=== PATIENT | male | born 1970 | race Caucasian/White ===

== ENCOUNTER 2018-07-04 14:36 | Emergency (ER) | payer MEDICAID ==
[2018-07-04 14:55] VITALS: BP 150/78
--- NOTE | 2018-07-04 17:01 | ER Document Report ---
ED Medical Screen (RME) - General Chief Complaint: Dialysis Catheter Problem Stated Complaint: PROBLEMS WITH PORT Time Seen by Provider: 07/04/18 16:52 TRAVEL OUTSIDE OF THE U.S. IN LAST 30 DAYS: No - HPI Notes: 07/04/18 16:57 (Sebastien not working): Pt had to have 2 blood transfusions 3 weeks ago s/p renal biopsy in [place]. He does continue to urinate several times throughout the day/night. Usually dialyzed t//sun, but last had dialysis this past sunday in [facility]. nurse note: "patient reports he recently moved here on Sunday. states he is a [facility] dialysis patient with last dialyzed on Sunday. states he was accepted to [facility] but is unable to be seen by office until he has emergency medicaid. states they think his perma-cath has been shifted and needs to have catheter checked, states last 2 times seen for dialysis had to run treatment reverse." Denies BRIONES, fever, neck pain, URI, CP, SOB, Abd pain, or rash. I have treated and performed a rapid initial assessment of this patient. A comprehensive ED assessment and evaluation of the patient, analysis of test results and completion of medical decision making process will be conducted by additional ED providers. PHYSICAL EXAMINATION: GENERAL: Well-appearing, well-nourished and in no acute distress. A&Ox4. Answers questions appropriately. LUNGS: Breath sounds clear to auscultation bilaterally and equal. No wheezes rales or rhonchi. HEART: Regular rate and rhythm without murmurs, rubs, gallops. ABDOMEN: Soft, nondistended abdomen. No guarding, no rebound. Normal bowel sounds present. No CVA tenderness bilaterally. grossly non-tender (cannot elicit thorough abd exam w/o table, however). - Related Data Allergies/Adverse Reactions: No Known Allergies Allergy (Verified 07/04/18 14:40) Past Medical History - Social History Chew tobacco use (# tins/day): No Frequency of alcohol use: None Drug Abuse: None - Past Medical History Cardiac Medical History: Reports: Hx Hypertension Renal/ Medical History: Denies: Hx Peritoneal Dialysis Past Surgical History: Reports: Hx Kidney (Renal Surgery) - right sided renal biopsy Physical Exam - Vital signs Vitals: Temp Pulse Resp BP Pulse Ox 97.9 F 74 18 150/78 H 98 07/04/18 14:54 07/04/18 14:54 07/04/18 14:54 07/04/18 14:54 07/04/18 14:54 Course - Vital Signs Vital signs: Temp Pulse Resp BP Pulse Ox 97.9 F 74 18 150/78 H 98 07/04/18 14:54 07/04/18 14:54 07/04/18 14:54 07/04/18 14:54 07/04/18 14:54
--- NOTE | 2018-07-04 17:31 | RADIOLOGY REPORT (SQ) ---
EXAM DESCRIPTION: CHEST 2 VIEWS COMPLETED DATE/TIME: 07/04/2018 5:21 pm REASON FOR STUDY: port eval COMPARISON: None. EXAM PARAMETERS: NUMBER OF VIEWS: two views TECHNIQUE: Digital Frontal and Lateral radiographic views of the chest acquired. RADIATION DOSE: NA LIMITATIONS: none FINDINGS: LUNGS AND PLEURA: No opacities, masses or pneumothorax. No pleural effusion. MEDIASTINUM AND HILAR STRUCTURES: No masses or contour abnormalities. HEART AND VASCULAR STRUCTURES: Heart normal size. No evidence for failure. BONES: No acute findings. HARDWARE: A right subclavian dual-lumen catheter terminates in the region of the cavoatrial junction. OTHER: No other significant finding. IMPRESSION: No evidence of acute cardiopulmonary abnormality. Right subclavian dual lumen catheter without evidence of gross complication. TECHNICAL DOCUMENTATION: JOB ID: [id number] [employer]- All Rights Reserved Reading location - IP/workstation name: [email or web address]
[2018-07-04 17:49] LABS: ABSOLUTE EOSINOPHILS # (AUTO) 0.1 10^3/uL (0.0-0.6); ABSOLUTE LYMPHOCYTES (AUTO) 1.9 10^3/uL (0.5-4.7); ABSOLUTE MONOCYTES (AUTO) 0.5 10^3/uL (0.1-1.4); ABSOLUTE NEUT (AUTO) 5.3 10^3/uL (1.7-8.2); BASOPHILS % (AUTO) 0.6 % (0-2); EOSINOPHILS % (AUTO) 1.6 % (0-6); HEMATOCRIT 27.4 % (37.9-51.0); HEMOGLOBIN 8.8 g/dL (13.5-17.0); LYMPHOCYTES % (AUTO) 24.4 % (13-45); MEAN CORPUSCULAR HEMOGLOBIN 25.4 pg (27.0-33.4); MEAN CORPUSCULAR HGB CONC 32.2 g/dL (32.0-36.0); MEAN CORPUSCULAR VOLUME 79 fl (80-97); MONOCYTES % (AUTO) 6.1 % (3-13); PLATELET COUNT 358 10^3/uL (150-450); RED BLOOD COUNT 3.48 10^6/uL (4.35-5.55); RED CELL DISTRIBUTION WIDTH 17.2 % (11.5-14.0); SEGMENTED NEUTROPHILS % (AUTO) 67.3 % (42-78); TOTAL CELLS COUNTED % (AUTO) 100 %; WHITE BLOOD COUNT 7.9 10^3/uL (4.0-10.5)
[2018-07-04 18:05] LABS: ALANINE AMINOTRANSFERASE 23 U/L (21-72); ALBUMIN 3.5 g/dL (3.5-5.0); ALKALINE PHOSPHATASE 97 U/L (38-126); ANION GAP 14 (5-19); ASPARTATE AMINO TRANSFERASE 28 U/L (17-59); BILIRUBIN,DIRECT 0.3 mg/dL (0.0-0.4); BILIRUBIN,TOTAL 0.4 mg/dL (0.2-1.3); BLOOD UREA NITROGEN 64 mg/dL (7-20); CARBON DIOXIDE 25 mmol/L (22-30); CHLORIDE 103 mmol/L (98-107); GLUCOSE 85 mg/dL (75-110); POTASSIUM 4.1 mmol/L (3.6-5.0); SODIUM 142.2 mmol/L (137-145); TOTAL PROTEIN 7.7 g/dL (6.3-8.2)
[2018-07-04 18:34] LABS: APPEARANCE,URINE SLIGHTLY-CLOUDY; BILIRUBIN,URINE NEGATIVE (NEGATIVE); COLOR,URINE YELLOW; GLUCOSE, URINE 50 mg/dL (NEGATIVE); KETONES,URINE NEGATIVE (NEGATIVE); LEUKOCYTE ESTERASE,URINE NEGATIVE (NEGATIVE); NITRITE,URINE NEGATIVE (NEGATIVE); PROTEIN,URINE >=500 mg/dL (NEGATIVE); URINE SPECIFIC GRAVITY 1.015; UROBILINOGEN,URINE NEGATIVE mg/dL (<2.0)
[2018-07-04] MEDS ORDERED: HEPARIN SOD (PORCINE) 1,000 UNIT/ML 1 ML VIAL IV STA ×2 (18:36→18:37)
[2018-07-04] MEDS ORDERED: ALTEPLASE INJ 2 MG VIAL (CATH CLEARANCE) IV ONE (18:36)
--- NOTE | 2018-07-04 18:36 | ER Document Report ---
ED General - General Chief Complaint: Dialysis Catheter Problem Stated Complaint: PROBLEMS WITH PORT Time Seen by Provider: 07/04/18 16:52 Primary Care Provider: MOSHE TUCKER MD [ACTIVE STAFF] - Follow up tomorrow Gian MENDOZA MD [ACTIVE STAFF] - Follow up tomorrow Notes: Patient is a 48-year-old male with history of end-stage renal disease on dialysis that presents to the emergency department for chief complaint of catheter malfunction. Patient has a permacath, that he was worried may be malfunctioning, he last had dialysis on Sunday of this week, and they had to switch the ports because it was running slower and they could not draw from it, they did infuse heparin after that session but advised having it checked out. He was worried because 10 days ago he was playing baseball with his son, and swing the bat, and felt a pulling sensation near the catheter site and was concerned that may be it had been affected by this leading to the cause of the dialysis sessions not to be useful. He states has been urinating well, and not had any issues there, he is been keeping a strict renal diet as well. He had his permacath placed about 8 weeks ago. He denies having any pain at this time. No other complaints. He recently moved here from [place], is getting set up with dialysis tomorrow. Past Medical History: End-stage renal disease on dialysis, hypertension Past Surgical History: Permacath placement Social History: Denies tobacco, alcohol or drug use. Family History: Reviewed and noncontributory for presenting illness Allergies: Reviewed, see documented allergy list. REVIEW OF SYSTEMS: Other than noted above, the 12 point review of systems was reviewed with the patient and were negative, all pertinent findings are included in the HPI. PHYSICAL EXAMINATION: Vital signs reviewed, nursing noted reviewed. GENERAL: Well-appearing, well-nourished and in no acute distress. HEAD: Atraumatic, normocephalic. EYES: Eyes appear normal, extraocular movements intact, sclera anicteric, conjunctiva are normal. ENT: nares patent, oropharynx clear without exudates. Moist mucous membranes. NECK: Normal range of motion, supple without lymphadenopathy LUNGS: Breath sounds clear to auscultation bilaterally and equal. No wheezes rales or rhonchi. Permacath noted in the right chest wall. Site does not appear to be infected, appears well sutured, and did not appear to be displaced. HEART: Regular rate and rhythm without murmurs ABDOMEN: Soft, nontender, normoactive bowel sounds. No rebound, guarding, or rigidity. No masses appreciated. EXTREMITIES: Nontender, good range of motion, no pitting or edema. NEUROLOGICAL: No focal neurological deficits. Moves all extremities spontaneously Motor and sensory grossly intact on exam. PSYCH: Normal mood, normal affect. SKIN: Warm, Dry, normal turgor, no rashes or lesions noted on exposed skin TRAVEL OUTSIDE OF THE U.S. IN LAST 30 DAYS: No - Related Data Allergies/Adverse Reactions: No Known Allergies Allergy (Verified 07/04/18 14:40) Past Medical History - Social History Smoking Status: Never Smoker Chew tobacco use (# tins/day): No Frequency of alcohol use: None Drug Abuse: None Family History: Reviewed & Not Pertinent Patient has suicidal ideation: No Patient has homicidal ideation: No - Past Medical History Cardiac Medical History: Reports: Hx Hypertension Renal/ Medical History: Denies: Hx Peritoneal Dialysis Past Surgical History: Reports: Hx Kidney (Renal Surgery) - right sided renal biopsy Physical Exam - Vital signs Vitals: Temp Pulse Resp BP Pulse Ox 97.9 F 74 18 150/78 H 98 07/04/18 14:54 07/04/18 14:54 07/04/18 14:54 07/04/18 14:54 07/04/18 14:54 Course - Re-evaluation Re-evalutation: Patient seen and examined vital signs reviewed. Laboratory data and/or imaging were ordered as appropriate for the patient's presenting symptoms and complaint, with consideration of any critical or life threatening conditions that may be associated with their obtained history and exam as noted above. Results were reviewed when available and demonstrated normal electrolytes, mild anemia, hemoglobin 8.8, expected in a patient with end-stage renal disease on dialysis, creatinine and BUN, consistent with his current state of renal disease. Otherwise unremarkable blood work. Chest x-ray performed prior to flushing and inspecting his catheter, demonstrated dual-lumen catheter, in proper position. Patient's catheter was inspected, using saline flushes, I was able to draw and flush without any issues in both the arterial and venous ports, from the venous side, was able to extract a thin and small clot, this was removed, prior to flushing with fresh saline. Then both catheter ports were flushed with the appropriate amount of heparin, to be instilled. The patient was re-evaluated and was stable, tolerating well, new sterile dressing was applied to the patient's catheter site. Evaluation was most consistent with dialysis catheter malfunction. Results were discussed with the patient at this point, after careful consideration I feel that that patient can be discharged from the emergency department, the patient was educated treatments and reasons to return to the emergency department based on their presumed diagnosis as noted above, they were advised to followup with a primary care physician in 2-3 days. Patient was agreeable to plan of care. *Note is created using voice recognition software and may contain spelling, syntax or grammatical errors. Laboratory 07/04/18 07/04/18 07/04/18 17:02 17:24 17:24 WBC 7.9 RBC 3.48 L Hgb 8.8 L Hct 27.4 L MCV 79 L MCH 25.4 L MCHC 32.2 RDW 17.2 H Plt Count 358 Seg Neutrophils % 67.3 Lymphocytes % 24.4 Monocytes % 6.1 Eosinophils % 1.6 Basophils % 0.6 Absolute Neutrophils 5.3 Absolute Lymphocytes 1.9 Absolute Monocytes 0.5 Absolute Eosinophils 0.1 Absolute Basophils 0.0 Sodium 142.2 Potassium 4.1 Chloride 103 Carbon Dioxide 25 Anion Gap 14 BUN 64 H Creatinine 7.09 H Est GFR ( Amer) 10 L Est GFR (Non-Af Amer) 8 L Glucose 85 Calcium 9.0 Total Bilirubin 0.4 Direct Bilirubin 0.3 Neonat Total Bilirubin Not Reportable Neonat Direct Bilirubin Not Reportable Neonat Indirect Bili Not Reportable AST 28 ALT 23 Alkaline Phosphatase 97 Total Protein 7.7 Albumin 3.5 Urine Color YELLOW Urine Appearance SLIGHTLY-CLOUDY Urine pH 6.0 Ur Specific [place] 1.015 Urine Protein >=500 H Urine Glucose (UA) 50 H Urine Ketones NEGATIVE Urine Blood MODERATE H Urine Nitrite NEGATIVE Urine Bilirubin NEGATIVE Urine Urobilinogen NEGATIVE Ur Leukocyte Esterase NEGATIVE Urine WBC (Auto) 11 Urine RBC (Auto) 80 Urine Mucus (Auto) RARE Urine Ascorbic Acid NEGATIVE Chest X-Ray 07/04/18 17:01 IMPRESSION: No evidence of acute cardiopulmonary abnormality. Right subclavian dual lumen catheter without evidence of gross complication. - Vital Signs Vital signs: Temp Pulse Resp BP Pulse Ox 97.9 F 74 18 150/78 H 98 07/04/18 14:54 07/04/18 14:54 07/04/18 14:54 07/04/18 14:54 07/04/18 14:54 - Laboratory Result Diagrams: 07/04/18 17:24 07/04/18 17:24 Laboratory results interpreted by me: 07/04/18 07/04/18 07/04/18 17:02 17:24 17:24 RBC 3.48 L Hgb 8.8 L Hct 27.4 L MCV 79 L MCH 25.4 L RDW 17.2 H BUN 64 H Creatinine 7.09 H Est GFR ( Amer) 10 L Est GFR (Non-Af Amer) 8 L Urine Protein >=500 H Urine Glucose (UA) 50 H Urine Blood MODERATE H Discharge - Discharge Clinical Impression: Complication, dialysis catheter clot or failure Condition: Stable Disposition: HOME, SELF-CARE Additional Instructions: Please follow-up with [facility] dialysis center tomorrow, to set up dialysis, and to schedule with a corporate associate. I did list below to the corporate associate in the area that we often work with. If you have any further concerns, do not hesitate to return to the emergency department. Referrals: MOSHE TUCKER MD [ACTIVE STAFF] - Follow up tomorrow Gian MENDOZA MD [ACTIVE STAFF] - Follow up tomorrow
== END 2018-07-04 20:07 | disposition home or self-care (01) ==
LOC: ER 14:36
DX: T82.868A Thrombosis due to vascular prosthetic devices, implants and grafts, initial encounter (principal); Y82.8 Other medical devices associated with adverse incidents; Y84.1 Kidney dialysis as the cause of abnormal reaction of the patient, or of later complication, without mention of misadventure at the time of the procedure; I12.0 Hypertensive chronic kidney disease with stage 5 chronic kidney disease or end stage renal disease; D63.1 Anemia in chronic kidney disease; N18.6 End stage renal disease; Z99.2 Dependence on renal dialysis
CPT/HCPCS: 99283; 36415; 85025; 80053; 81001; 71046; J1644; J2997

== ENCOUNTER 2018-07-07 12:58 | Emergency (ER) | payer OTHER, MEDICAID ==
--- NOTE | 2018-07-07 13:41 | ER Document Report ---
ED Medical Screen (RME) - General Chief Complaint: Dialysis Catheter Problem Stated Complaint: DIALYSIS Time Seen by Provider: 07/07/18 13:39 Mode of Arrival: Ambulatory Information source: Patient Notes: 48-year-old male presented to ED for need of dialysis. He states he last had his dialysis on Sunday in [place]. He states he transferred here and was supposed to get his dialysis at [facility] but they refused him because he does not have [place] Medicaid. He states about 3 weeks ago he had a renal biopsy that went bad and he ended up with a injury to his liver and kidney. States he ended up having to get a lot of blood and on some medicines. He states he is also has a history of fractured arms and ribs. He states mainly he is here because he has not had dialysis since Sunday. Patient is alert oriented respirations regular and unlabored speaking in full sentences walks with a even steady gait. I have greeted and performed a rapid initial assessment of this patient. A comprehensive ED assessment and evaluation of the patient, analysis of test results and completion of medical decision making process will be conducted by an additional ED providers. TRAVEL OUTSIDE OF THE U.S. IN LAST 30 DAYS: No - Related Data Allergies/Adverse Reactions: No Known Allergies Allergy (Verified 07/07/18 13:01) Past Medical History - Social History Drug Abuse: None - Past Medical History Cardiac Medical History: Reports: Hx Hypertension Renal/ Medical History: Denies: Hx Peritoneal Dialysis Past Surgical History: Reports: Hx Kidney (Renal Surgery) - right sided renal biopsy Physical Exam - Vital signs Vitals: Temp Pulse Resp BP Pulse Ox 98.7 F 86 18 164/90 H 86 L 07/07/18 13:38 07/07/18 13:38 07/07/18 13:38 07/07/18 13:38 07/07/18 13:38 Course - Vital Signs Vital signs: Temp Pulse Resp BP Pulse Ox 98.7 F 86 18 164/90 H 86 L 07/07/18 13:38 07/07/18 13:38 07/07/18 13:38 07/07/18 13:38 07/07/18 13:38
[2018-07-07 14:34] LABS: ABSOLUTE EOSINOPHILS # (AUTO) 0.1 10^3/uL (0.0-0.6); ABSOLUTE MONOCYTES (AUTO) 0.4 10^3/uL (0.1-1.4); ABSOLUTE NEUT (AUTO) 4.2 10^3/uL (1.7-8.2); BASOPHILS % (AUTO) 0.7 % (0-2); EOSINOPHILS % (AUTO) 1.6 % (0-6); HEMATOCRIT 26.6 % (37.9-51.0); HEMOGLOBIN 8.9 g/dL (13.5-17.0); MEAN CORPUSCULAR HEMOGLOBIN 25.9 pg (27.0-33.4); MEAN CORPUSCULAR HGB CONC 33.3 g/dL (32.0-36.0); MEAN CORPUSCULAR VOLUME 78 fl (80-97); MONOCYTES % (AUTO) 7.2 % (3-13); PLATELET COUNT 292 10^3/uL (150-450); RED BLOOD COUNT 3.43 10^6/uL (4.35-5.55); RED CELL DISTRIBUTION WIDTH 17.2 % (11.5-14.0); SEGMENTED NEUTROPHILS % (AUTO) 73.5 % (42-78); TOTAL CELLS COUNTED % (AUTO) 100 %; WHITE BLOOD COUNT 5.7 10^3/uL (4.0-10.5)
[2018-07-07 14:44] LABS: AMORPHOUS SEDIMENT,URINE TRACE /HPF; APPEARANCE,URINE CLOUDY; BILIRUBIN,URINE NEGATIVE (NEGATIVE); COLOR,URINE YELLOW; GLUCOSE, URINE 50 mg/dL (NEGATIVE); KETONES,URINE NEGATIVE (NEGATIVE); LEUKOCYTE ESTERASE,URINE NEGATIVE (NEGATIVE); NITRITE,URINE NEGATIVE (NEGATIVE); PROTEIN,URINE >=500 mg/dL (NEGATIVE); URINE SPECIFIC GRAVITY 1.018; UROBILINOGEN,URINE NEGATIVE mg/dL (<2.0)
[2018-07-07 14:55] LABS: ALANINE AMINOTRANSFERASE 28 U/L (21-72); ALBUMIN 3.3 g/dL (3.5-5.0); ALKALINE PHOSPHATASE 100 U/L (38-126); ANION GAP 15 (5-19); ASPARTATE AMINO TRANSFERASE 30 U/L (17-59); BILIRUBIN,DIRECT 0.4 mg/dL (0.0-0.4); BILIRUBIN,TOTAL 0.4 mg/dL (0.2-1.3); BLOOD UREA NITROGEN 70 mg/dL (7-20); CALCIUM 8.8 mg/dL (8.4-10.2); CARBON DIOXIDE 23 mmol/L (22-30); CHLORIDE 102 mmol/L (98-107); GLUCOSE 116 mg/dL (75-110); LIPASE 147.8 U/L (23-300); POTASSIUM 4.3 mmol/L (3.6-5.0); TOTAL PROTEIN 7.4 g/dL (6.3-8.2)
[2018-07-07] MEDS ORDERED: HEPARIN SOD (PORCINE) 1,000 UNIT/ML 1 ML VIAL IV STA ×2 (16:58→16:59)
--- NOTE | 2018-07-07 16:58 | ER Document Report ---
ED General - General Chief Complaint: Dialysis Catheter Problem Stated Complaint: DIALYSIS Time Seen by Provider: 07/07/18 13:39 Mode of Arrival: Ambulatory Notes: Patient is a 48-year-old male with end-stage renal disease on dialysis that presents to the emergency department for chief complaint of possibly needing di alysis. Patient states that he was not able to get into see [facility] last week, so he was worried that he may need dialysis emergently so he came urgency department. He was a started on dialysis about 8 weeks ago, I did see this patient in the emergency department last week, as he thought that his permacath was not functioning properly but at that time it was. He is worried as well that it may clot off and he does not want that to happen either. He denies having any shortness of breath or difficulty breathing, he is complaining of some leg cramps, describes as worse with getting up or walking, but he is been keeping a strict fluid intake diet, only drinking 2 bottles of water a day, and has been keeping a strict low-salt diet as well. He currently rates his pain as a 0 out of 10 at rest, but describes as a 4 out of 10 when he is walking. Past Medical History: End-stage renal disease on dialysis, hypertension Past Surgical History: Permacath placement Social History: Denies current tobacco, alcohol or drug use. Family History: Reviewed and noncontributory for presenting illness Allergies: Reviewed, see documented allergy list. REVIEW OF SYSTEMS: Other than noted above, the 12 point review of systems was reviewed with the patient and were negative, all pertinent findings are included in the HPI. PHYSICAL EXAMINATION: Vital signs reviewed, nursing noted reviewed. GENERAL: Well-appearing, well-nourished and in no acute distress. HEAD: Atraumatic, normocephalic. EYES: Eyes appear normal, extraocular movements intact, sclera anicteric, conjunctiva are normal. ENT: nares patent, oropharynx clear without exudates. Moist mucous membranes. NECK: Normal range of motion, supple without lymphadenopathy LUNGS: Breath sounds clear to auscultation bilaterally and equal. No wheezes rales or rhonchi. Tunneled permacatheter noted in the right chest wall. HEART: Regular rate and rhythm without murmurs ABDOMEN: Soft, nontender, normoactive bowel sounds. No rebound, guarding, or rigidity. No masses appreciated. EXTREMITIES: Mild tenderness to palpation to the proximal thighs, no rashes or lesions noted, good range of motion, no pitting or edema. NEUROLOGICAL: No focal neurological deficits. Moves all extremities spontaneously Motor and sensory grossly intact on exam. PSYCH: Normal mood, normal affect. SKIN: Warm, Dry, normal turgor, no rashes or lesions noted on exposed skin TRAVEL OUTSIDE OF THE U.S. IN LAST 30 DAYS: No - Related Data Allergies/Adverse Reactions: No Known Allergies Allergy (Verified 07/07/18 13:01) Past Medical History - General Information source: Patient - Social History Smoking Status: Never Smoker Drug Abuse: None Family History: Reviewed & Not Pertinent Patient has suicidal ideation: No Patient has homicidal ideation: No - Past Medical History Cardiac Medical History: Reports: Hx Hypertension Renal/ Medical History: Denies: Hx Peritoneal Dialysis Past Surgical History: Reports: Hx Kidney (Renal Surgery) - right sided renal biopsy Physical Exam - Vital signs Vitals: Temp Pulse Resp BP Pulse Ox 98.7 F 86 18 164/90 H 86 L 07/07/18 13:38 07/07/18 13:38 07/07/18 13:38 07/07/18 13:38 07/07/18 13:38 Course - Re-evaluation Re-evalutation: Patient seen and examined vital signs reviewed. Laboratory data and/or imaging were ordered as appropriate for the patient's presenting symptoms and complaint, with consideration of any critical or life threatening conditions that may be associated with their obtained history and exam as noted above. Patient was treated with flushing of his catheter, with new heparin, and his catheter was redressed with new Tegaderm sterilely. Results were reviewed when available and demonstrated no signs of acidosis, no severe electrolyte abnormalities, no hyperkalemia, patient did not appear fluid overloaded, and any indication for acute dialysis. The patient was re-evaluated and was stable Evaluation was most consistent with mild dehydration as well as suspect, patient's been urinating, and not drinking all that much, I do advised him strongly to follow-up with the dialysis center, to call the sales planning manager to see if he can get into get set up for routine dialysis. Results were discussed with the patient at this point, after careful consideration I feel that that patient can be discharged from the emergency department, the patient was educated treatments and reasons to return to the emergency department based on their presumed diagnosis as noted above, they were advised to followup with a primary care physician in 2-3 days. Patient was agre eable to plan of care. *Note is created using voice recognition software and may contain spelling, syntax or grammatical errors. Laboratory 07/07/18 07/07/18 07/07/18 14:00 14:00 14:00 WBC 5.7 RBC 3.43 L Hgb 8.9 L Hct 26.6 L MCV 78 L MCH 25.9 L MCHC 33.3 RDW 17.2 H Plt Count 292 Seg Neutrophils % 73.5 Lymphocytes % 17.0 Monocytes % 7.2 Eosinophils % 1.6 Basophils % 0.7 Absolute Neutrophils 4.2 Absolute Lymphocytes 1.0 Absolute Monocytes 0.4 Absolute Eosinophils 0.1 Absolute Basophils 0.0 Sodium 140.0 Potassium 4.3 Chloride 102 Carbon Dioxide 23 Anion Gap 15 BUN 70 H Creatinine 7.93 H Est GFR ( Amer) 9 L Est GFR (Non-Af Amer) 7 L Glucose 116 H Calcium 8.8 Total Bilirubin 0.4 Direct Bilirubin 0.4 Neonat Total Bilirubin Not Reportable Neonat Direct Bilirubin Not Reportable Neonat Indirect Bili Not Reportable AST 30 ALT 28 Alkaline Phosphatase 100 Total Protein 7.4 Albumin 3.3 L Lipase 147.8 Urine Color YELLOW Urine Appearance CLOUDY Urine pH 5.0 Ur Specific [place] 1.018 Urine Protein >=500 H Urine Glucose (UA) 50 H Urine Ketones NEGATIVE Urine Blood MODERATE H Urine Nitrite NEGATIVE Urine Bilirubin NEGATIVE Urine Urobilinogen NEGATIVE Ur Leukocyte Esterase NEGATIVE Urine WBC (Auto) 10 Urine RBC (Auto) 77 Urine Bacteria (Auto) TRACE Squamous Epi Cells Auto 1 Amorphous Sediment Auto TRACE Urine Mucus (Auto) RARE Urine Ascorbic Acid NEGATIVE - Vital Signs Vital signs: Temp Pulse Resp BP Pulse Ox 98.7 F 86 18 164/90 H 86 L 07/07/18 13:38 07/07/18 13:38 07/07/18 13:38 07/07/18 13:38 07/07/18 13:38 - Laboratory Result Diagrams: 07/07/18 14:00 07/07/18 14:00 Laboratory results interpreted by me: 07/07/18 07/07/18 07/07/18 14:00 14:00 14:00 RBC 3.43 L Hgb 8.9 L Hct 26.6 L MCV 78 L MCH 25.9 L RDW 17.2 H BUN 70 H Creatinine 7.93 H Est GFR ( Amer) 9 L Est GFR (Non-Af Amer) 7 L Glucose 116 H Albumin 3.3 L Urine Protein >=500 H Urine Glucose (UA) 50 H Urine Blood MODERATE H Discharge - Discharge Clinical Impression: Leg cramping, ESRD (end stage renal disease) on dialysis Condition: Stable Disposition: HOME, SELF-CARE Instructions: Kidney Failure ([facility]) Additional Instructions: These follow-up with the dialysis center, and with the sales planning manager, call for an appointment. Referrals: LOCAL,NO [Primary Care Provider] - Follow up as needed MOSHE TUCKER MD [ACTIVE STAFF] - Follow up as needed Gian MENDOZA MD [ACTIVE STAFF] - Follow up as needed
[2018-07-07] MEDS ORDERED: HEPARIN SOD (PORCINE) 1,000 UNIT/ML 10 ML VIAL IV ONE (17:36)
[2018-07-07 18:22] VITALS: BP 178/92
== END 2018-07-07 18:22 | disposition home or self-care (01) ==
LOC: ER 12:58
DX: R25.2 Cramp and spasm (principal); I12.0 Hypertensive chronic kidney disease with stage 5 chronic kidney disease or end stage renal disease; N18.6 End stage renal disease; Z99.2 Dependence on renal dialysis
CPT/HCPCS: 99284; 36415; 83690; 85025; 80053; 81001; J1644

== ENCOUNTER 2018-08-21 10:28 | Emergency (ER) | payer OTHER, MEDICAID ==
--- NOTE | 2018-08-21 11:40 | ER Document Report ---
ED Medical Screen (RME) - General Chief Complaint: Weakness Stated Complaint: GENERAL WEAKNESS Time Seen by Provider: 08/21/18 11:23 Primary Care Provider: NEELIMA ZHONG [Primary Care Provider] - Follow up as needed Mode of Arrival: Ambulatory Information source: Patient Notes: Patient is a 40-year-old male presented to the emergency department chief complaint of dizziness and generalized weakness. Patient reports he is a dialysis patient has not had dialysis for approximately 7 to 8 weeks. He also reports that he has discomfort around his dialysis port that is on his right chest wall. He states he moved here from [place] and has not been able to set up insurance yet. Exam: Patient alert, oriented answering all questions and in no acute distress. Heart sounds S1-S2 present with no ectopy noted. Lung sounds clear and equal bilaterally. I have greeted and performed a rapid initial assessment of this patient. A comprehensive ED assessment and evaluation of the patient, analysis of test results and completion of the medical decision making process will be conducted by additional ED providers. Dictation of this chart was performed using voice recognition software; therefore, there may be some unintended grammatical errors. TRAVEL OUTSIDE OF THE U.S. IN LAST 30 DAYS: No - Related Data Allergies/Adverse Reactions: No Known Allergies Allergy (Verified 08/21/18 10:30) Past Medical History - Social History Frequency of alcohol use: None Drug Abuse: None - Past Medical History Cardiac Medical History: Reports: Hx Congestive Heart Failure, Hx Hypertension Renal/ Medical History: Denies: Hx Peritoneal Dialysis Past Surgical History: Reports: Hx Kidney (Renal Surgery) - right sided renal biopsy Physical Exam - Vital signs Vitals: Temp Pulse Resp BP Pulse Ox 98.1 F 86 18 176/83 H 99 08/21/18 10:31 08/21/18 10:31 08/21/18 10:31 08/21/18 10:31 08/21/18 10:31 Course - Vital Signs Vital signs: Temp Pulse Resp BP Pulse Ox 98.1 F 86 18 176/83 H 99 08/21/18 10:31 08/21/18 10:31 08/21/18 10:31 08/21/18 10:31 08/21/18 10:31 Doctor's Discharge - Discharge Referrals: NEELIMA ZHONG [Primary Care Provider] - Follow up as needed
--- NOTE | 2018-08-21 12:12 | RADIOLOGY REPORT (SQ) ---
EXAM DESCRIPTION: CHEST 2 VIEWS COMPLETED DATE/TIME: 08/21/2018 11:53 am REASON FOR STUDY: weakness, missed dialysis COMPARISON: 07/04/2018 EXAM PARAMETERS: NUMBER OF VIEWS: two views TECHNIQUE: Digital Frontal and Lateral radiographic views of the chest acquired. RADIATION DOSE: NA LIMITATIONS: none FINDINGS: LUNGS AND PLEURA: No opacities, masses or pneumothorax. No pleural effusion. MEDIASTINUM AND HILAR STRUCTURES: No masses or contour abnormalities. HEART AND VASCULAR STRUCTURES: Heart normal size. No evidence for failure. BONES: No acute findings. HARDWARE: None in the chest. OTHER: Unchanged position of right-sided central line. IMPRESSION: NO ACUTE RADIOGRAPHIC FINDING IN THE CHEST. TECHNICAL DOCUMENTATION: JOB ID: [id number] [employer]- All Rights Reserved Reading location - IP/workstation name: [email or web address]
[2018-08-21 12:29] LABS: ABSOLUTE BASOPHILS # (AUTO) 0.1 10^3/uL (0.0-0.2); ABSOLUTE EOSINOPHILS # (AUTO) 0.1 10^3/uL (0.0-0.6); ABSOLUTE LYMPHOCYTES (AUTO) 0.9 10^3/uL (0.5-4.7); ABSOLUTE MONOCYTES (AUTO) 0.4 10^3/uL (0.1-1.4); ABSOLUTE NEUT (AUTO) 7.9 10^3/uL (1.7-8.2); BASOPHILS % (AUTO) 0.8 % (0-2); EOSINOPHILS % (AUTO) 0.8 % (0-6); HEMATOCRIT 21.5 % (37.9-51.0); LYMPHOCYTES % (AUTO) 9.4 % (13-45); MEAN CORPUSCULAR HEMOGLOBIN 25.7 pg (27.0-33.4); MEAN CORPUSCULAR VOLUME 76 fl (80-97); MONOCYTES % (AUTO) 4.6 % (3-13); PLATELET COUNT 111 10^3/uL (150-450); RED BLOOD COUNT 2.84 10^6/uL (4.35-5.55); SEGMENTED NEUTROPHILS % (AUTO) 84.4 % (42-78); TOTAL CELLS COUNTED % (AUTO) 100 %; WHITE BLOOD COUNT 9.4 10^3/uL (4.0-10.5)
[2018-08-21 12:32] LABS: HEMOGLOBIN 7.3 g/dL (13.5-17.0)
[2018-08-21 12:58] LABS: ALANINE AMINOTRANSFERASE 23 U/L (21-72); ALBUMIN 3.4 g/dL (3.5-5.0); ALKALINE PHOSPHATASE 118 U/L (38-126); ANION GAP 15 (5-19); ASPARTATE AMINO TRANSFERASE 26 U/L (17-59); BILIRUBIN,DIRECT 0.4 mg/dL (0.0-0.4); BILIRUBIN,TOTAL 0.4 mg/dL (0.2-1.3); BLOOD UREA NITROGEN 102 mg/dL (7-20); CALCIUM 8.2 mg/dL (8.4-10.2); CARBON DIOXIDE 19 mmol/L (22-30); CHLORIDE 103 mmol/L (98-107); GLUCOSE 107 mg/dL (75-110); POTASSIUM 4.6 mmol/L (3.6-5.0); SODIUM 137.1 mmol/L (137-145); TOTAL PROTEIN 7.6 g/dL (6.3-8.2)
[2018-08-21 13:10] LABS: TROPONIN I 0.096 ng/mL
[2018-08-21] MEDS ORDERED: ONDANSETRON HCL INJ/PF 4 MG/2 ML SDV IV ONE (14:11)
--- NOTE | 2018-08-21 16:51 | ER Document Report ---
ED Dizziness/Weakness - General Chief Complaint: Weakness Stated Complaint: GENERAL WEAKNESS Time Seen by Provider: 08/21/18 11:23 Primary Care Provider: [facility] [Provider Group] - Follow up as needed Mode of Arrival: Ambulatory Notes: Patient is a 48-year-old male with a history of stage IV kidney disease on hemodialysis, hypertension, CVA who presents to the emergency department with a chief complaint of generalized weakness. Patient states he started hemodialysis in May 2018 while living in [place]. Patient reports he developed kidney failure due to uncontrolled hypertension. Patient states the last time he had dialysis was 3 weeks ago at [facility] in [place]. Patient reports that at that time he was also anemic with a hemoglobin in the fours in which she did receive a blood transfusion. Patient states that due to insurance issues he has been able to establish care with a shrimp peeling machine operator, primary care or with a [facility] in the area which is why he is seeking care in the emergency department today. Patient reports generalized weakness, nausea, blurred vision in both eyes and seeing stars. Patient states that his blurred vision has been present since his hemoglobin was 4 and he was admitted into the hospital at [facility]. Patient states he started to feel this way when his hemoglobin got too low. Patient states he does feel winded when attempting to ambulate with shortness of breath. TRAVEL OUTSIDE OF THE [place] IN LAST 30 DAYS: No - Related Data Allergies/Adverse Reactions: No Known Allergies Allergy (Verified 08/21/18 10:30) Past Medical History - General Information source: Patient - Social History Smoking Status: Never Smoker Frequency of alcohol use: None Drug Abuse: None Lives with: Family Family History: Reviewed & Not Pertinent Patient has suicidal ideation: No Patient has homicidal ideation: No - Past Medical History Cardiac Medical History: Reports: Hx Congestive Heart Failure, Hx Hypertension Pulmonary Medical History: Reports: None EENT Medical History: Reports: None Neurological Medical History: Reports: None Endocrine Medical History: Reports: None Renal/ Medical History: Reports: Hx End Stage Renal Disease, Hx Hemodialysis. Denies: Hx Peritoneal Dialysis Malignancy Medical History: Reports None GI Medical History: Reports: None Musculoskeletal Medical History: Reports None Skin Medical History: Reports None Psychiatric Medical History: Reports: None Traumatic Medical History: Reports: None Infectious Medical History: Reports: None Past Surgical History: Reports: Hx Kidney (Renal Surgery) - right sided renal biopsy Review of Systems - Review of Systems Constitutional: See HPI EENT: See HPI Cardiovascular: See HPI Respiratory: See HPI Gastrointestinal: No symptoms reported Genitourinary: See HPI Male Genitourinary: No symptoms reported Musculoskeletal: No symptoms reported Skin: No symptoms reported Hematologic/Lymphatic: No symptoms reported Neurological/Psychological: No symptoms reported Physical Exam - Vital signs Vitals: Temp Pulse Resp BP Pulse Ox 98.1 F 86 18 176/83 H 99 08/21/18 10:31 08/21/18 10:31 08/21/18 10:31 08/21/18 10:31 08/21/18 10:31 Interpretation: Hypertensive - Notes Notes: GENERAL: Well-appearing, well-nourished and in no acute distress. HEAD: Atraumatic, normocephalic. EYES: Pupils equal round and reactive to light, extraocular movements intact, sclera anicteric, conjunctiva pale. ENT: Nares patent, oropharynx clear without exudates. Moist mucous membranes. NECK: Normal range of motion, supple without lymphadenopathy or JVD. LUNGS: Breath sounds clear to auscultation bilaterally and equal. No wheezes rales or rhonchi. HEART: Regular rate and rhythm without murmurs, rubs or gallops. Right tunneled PermCath noted to chest wall with a dressing over the site. ABDOMEN: Soft, nontender, normoactive bowel sounds. No guarding, no rebound. No masses appreciated. BACK: No cervical, thoracic, lumbar midline tenderness. No saddle anesthesia, normal distal neurovascular exam. GENITOURINARY: Deferred. EXTREMITIES: Normal range of motion, +1/+2 pitting edema bilateral lower ext remities. No clubbing or cyanosis. NEUROLOGICAL: Cranial nerves II through XII grossly intact. Normal speech, normal gait. PSYCH: Normal mood, normal affect. SKIN: Warm, Dry, normal turgor, no rashes or lesions noted, skin pale. Course - Re-evaluation Re-evalutation: 08/21/18 17:03 I did consult with Dr. Goff regarding patient's blood work and presenting symptoms. She agrees that the patient does not appear to need emergent dialysis. She does agree that the patient needs to be treated for his symptomatic anemia as well as a social work consult due to his inability to establish dialysis care on his own. She reports that next dialysis in hospital would be available in 2 days on Sunday. 08/21/18 17:28 [address] did speak with Dr. Parker, hospitalist, who recommends giving the patient one unit of blood due to the symptomatic anemia, refer the patient to the [facility] and to place a referral to the social media manager. Patient states he has attempted to go to the [facility] on a Sunday afternoon but they were closed. Patient states he has applied for the [place] Medicaid coverage but needs a primary care physician to write a letter stating that his chronic kidney disease is a chronic issue and not an acute issue. Patient is unsure why he is anemic. Patient states that he was told by Aidee that this was due to his kidney function. Patient denies black or tarry stools and denies bright red blood in his stools. Patient does take a iron supplementation daily. 08/21/18 18:00 I did speak with my attending Dr. Velasquez, who recommends obtaining a Hemoccult rectal exam. He states that since we do not have dialysis available and that the patient has symptomatic anemia he will need a blood transfusion with the potential of possible fluid overload. He recommends calling [facility] for possible transfer. 08/21/18 18:55 Patient Hemoccult negative. Patient requesting pain medication for his lower back. 08/21/18 19:05 I did speak with Dr. Goff once again regarding the patient case. She states that after giving the 1 unit of blood she recommends giving him 40 mg of Lasix IV. She does state that patient needs a close follow-up and a social work referral. I did discuss this with the patient as well as Dr. Velasquez who is in agreement of plan. Patient states that 3 weeks ago when he was at [facility] he tolerated the infusion well. Patient states overall he has been in the eating a diet low in salt and limiting his fluids as he knows he eventually needs dialysis and is trying to extend the time until his insurance is approved. manager of planning consult placed. Informed patient that they will be in contact with him tomorrow. Patient verbalizes understanding. 08/21/18 20:00 Patient's discharge instructions typed up. I did discuss with the patient that his blood infusion would take a while as we do not want to infuse it quickly and fluid overload him. Patient will receive a dose of IV Lasix prior to discharge. Patient verbalizes understanding. I will give patient's dose of blood pressure medications as he is due for them tonight. Patient in no acute distress. Family is at bedside. - Vital Signs Vital signs: Temp Pulse Resp BP Pulse Ox 98.9 F 88 17 148/86 H 96 08/22/18 01:30 08/22/18 01:30 08/22/18 02:01 08/22/18 02:00 08/22/18 02:01 - Laboratory Result Diagrams: 08/21/18 12:06 08/21/18 12:06 Laboratory results interpreted by me: 08/21/18 08/21/18 08/21/18 12:06 12:06 12:06 RBC 2.84 L Hgb 7.3 L Hct 21.5 L MCV 76 L MCH 25.7 L RDW 18.0 H Plt Count 111 L Seg Neutrophils % 84.4 H Lymphocytes % 9.4 L Carbon Dioxide 19 L BUN 102 H Creatinine 13.96 H Est GFR ( Amer) 5 L Est GFR (Non-Af Amer) 4 L Calcium 8.2 L NT-Pro-B Natriuret Pep Albumin 3.4 L Urine Protein Urine Glucose (UA) Urine Blood Crossmatch See Detail 08/21/18 08/21/18 12:06 18:10 RBC Hgb Hct MCV MCH RDW Plt Count Seg Neutrophils % Lymphocytes % Carbon Dioxide BUN Creatinine Est GFR ( Amer) Est GFR (Non-Af Amer) Calcium NT-Pro-B Natriuret Pep 9760 H Albumin Urine Protein >=500 H Urine Glucose (UA) 150 H Urine Blood MODERATE H Crossmatch Discharge - Discharge Clinical Impression: Symptomatic anemia, End stage renal disease, Dizziness Condition: Stable Disposition: HOME, SELF-CARE Additional Instructions: Today you were seen in the emergency department for generalized weakness and blurred vision. It was found that your hemoglobin is 7.2. This is a change from your previous visit back in July as it is lower. Ultimately you will need dialysis once your insurance is established in this state. I did speak with Dr. Goff, who is a shrimp peeling machine operator in the area. She agrees with my plan to give 1 unit of packed red blood cells. I have also placed a social work consult in your chart, they will be in contact with you tomorrow on your cell phone. Social work may be able to help expedite the insurance issues that you are having and help to get an appointment with the [facility] quicker. Please return to the emergency department for any worsening signs or symptoms to include passing out, worsening dizziness, worsening change in vision, chest pain, shortness of breath or any other concerning signs or symptoms. Referrals: [facility] [Provider Group] - Follow up as needed
[2018-08-21 18:31] LABS: APPEARANCE,URINE SLIGHTLY-CLOUDY; BILIRUBIN,URINE NEGATIVE (NEGATIVE); COLOR,URINE YELLOW; GLUCOSE, URINE 150 mg/dL (NEGATIVE); KETONES,URINE NEGATIVE (NEGATIVE); LEUKOCYTE ESTERASE,URINE NEGATIVE (NEGATIVE); NITRITE,URINE NEGATIVE (NEGATIVE); PROTEIN,URINE >=500 mg/dL (NEGATIVE); URINE SPECIFIC GRAVITY 1.014; UROBILINOGEN,URINE NEGATIVE mg/dL (<2.0)
[2018-08-21] MEDS ORDERED: HYDROCODONE/ACETAMINOPHEN 5-325 MG TABLET PO ONE (19:01)
[2018-08-21] MEDS ORDERED: NORMAL SALINE 250 ML IV PRN (19:06)
[2018-08-21] MEDS ORDERED: AMLODIPINE BESYLATE 10 MG TABLET PO ONE (19:54)
[2018-08-21] MEDS ORDERED: METOPROLOL TARTRATE 50 MG TABLET PO ONE (19:54)
[2018-08-21] MEDS ORDERED: FUROSEMIDE INJ/PF 40 MG/4 ML SDV IV ONE (20:08)
[2018-08-22 02:11] VITALS: BP 148/86
[2018-08-22] MEDS ORDERED: FUROSEMIDE INJ/PF 40 MG/4 ML SDV ONE (02:31)
[2018-08-22] MEDS ORDERED: ONDANSETRON ODT 4 MG TAB (6 TAB/ER DISP) PO PRN (02:42)
[2018-08-22] MEDS ORDERED: HYDROCODONE/ACETAMINOPHEN 5-325 MG (6 TAB/ER DISP) PO PRN (02:42)
== END 2018-08-22 02:51 | disposition home or self-care (01) ==
LOC: ER 10:28
DX: R53.1 Weakness (principal); R06.02 Shortness of breath; I13.2 Hypertensive heart and chronic kidney disease with heart failure and with stage 5 chronic kidney disease, or end stage renal disease; N18.6 End stage renal disease; N18.4 Chronic kidney disease, stage 4 (severe); I50.9 Heart failure, unspecified; Z99.2 Dependence on renal dialysis; D64.9 Anemia, unspecified
CPT/HCPCS: 99284; 96374; 86900; 86901; 36415; 36430; 86850; 85025; 80053; 81001; 84484; 86920; 83880; 71046; P9016; J2405